=== PATIENT | female | born 1965 | race Caucasian/White ===

== ENCOUNTER 2017-10-30 15:59 | Emergency (ER) | payer BC ==
[2017-10-30 16:52] VITALS: BP 144/90
[2017-10-30] MEDS ORDERED: Ondansetron ODT TAB* 4 MG PO ONE (17:30)
[2017-10-30] MEDS ORDERED: Albuterol/Ipratropium NEB.SOL* Albuterol 2.5 MG/Ipratropium 0.5 MG 3 ML INH ONE (17:30)
--- NOTE | 2017-10-30 17:36 | UC ---
Respiratory Complaint HPI - HPI Summary HPI Summary: Pt presents with 3 days cough, nausea, 1 episode of diarrhea today. Pt with chills, wheeze. No productive cough pt with bran. mild sinus congestion. No rash + sick contacts. Pt took Aleve this am, no other meds + 1/2 ppd pt's medications reviewed this visit - History of Current Complaint Chief Complaint: UCGeneralIllness Stated Complaint: COUGH/DIZZY/NAUSEA Time Seen by Provider: 10/30/17 16:55 Hx Obtained From: Patient Onset/Duration: Gradual Onset Severity Initially: Moderate Severity Currently: Moderate Pain Intensity: 7 Pain Scale Used: 0-10 Numeric Character: Cough: Nonproductive Associated Signs And Symptoms: Positive: Wheezing, Nasal Congestion - Allergies/Home Medications Allergies/Adverse Reactions: Allergies Allergy/AdvReac Type Severity Reaction Status Date / Time tramadol Allergy Itching Verified 10/30/17 16:43 aspirin AdvReac Nausea Verified 10/30/17 16:43 codeine AdvReac Nausea Verified 10/30/17 16:43 PMH/Surg Hx/FS Hx/Imm Hx GI/ History: Gastroesophageal Reflux Psychological History: Depression - Surgical History Surgical History: Yes Surgery Procedure, Year, and Place: Surgery 1998 - Family History Known Family History: Positive: Cardiac Disease - mother , father, Hypertension - mother father, brother, Diabetes - mother, brother - Social History Occupation: Employed Full-time Lives: With Family Alcohol Use: Rare Substance Use Type: None Smoking Status (MU): Light Every Day Tobacco Smoker - 1/2ppd Type: Cigarettes Amount Used/How Often: 1/2 PPD Length of Time of Smoking/Using Tobacco: 20 YRS Have You Smoked in the Last Year: Yes Household Exposure Type: Cigarettes Review of Systems Constitutional: Chills, Fatigue ENT: Nasal Discharge, Sinus Congestion Respiratory: Cough Cardiovascular: Negative Gastrointestinal: Negative Genitourinary: Negative All Other Systems Reviewed And Are Negative: Yes Physical Exam Triage Information Reviewed: Yes Appearance: Well-Nourished, Other: Vital Signs: Initial Vital Signs Temp 98.1 F 10/30/17 16:45 Pulse 84 10/30/17 16:45 Resp 14 10/30/17 16:45 BP 144/90 10/30/17 16:45 Pulse Ox 100 10/30/17 16:45 Vital Signs Reviewed: Yes Eye Exam: Normal Eyes: Positive: Conjunctiva Clear ENT: Positive: Other - TM x 2 clear + PND turbinates inflammed rhonchi left base scattered wheeze uvula midline Dental Exam: Normal Neck exam: Normal Neck: Positive: Supple, Nontender, No Lymphadenopathy Respiratory: Positive: No respiratory distress, No accessory muscle use, Other: - coarse cough rhonci left base scattered wheeze Cardiovascular Exam: Normal Cardiovascular: Positive: RRR, No Murmur Abdominal Exam: Normal Abdomen Description: Positive: Nontender, No Organomegaly. Negative: CVA Tenderness (R), CVA Tenderness (L) Musculoskeletal Exam: Normal Musculoskeletal: Positive: Strength Intact Neurological Exam: Normal Neurological: Positive: Alert Psychological Exam: Normal Skin Exam: Normal UC Diagnostic Evaluation - Laboratory O2 Sat by Pulse Oximetry: 100 Re-Evaluation - Re-Evaluation First Eval Change: Improved - wheezing markedly improved nausea resolved will d/c with pred , zofran, albuterol return precautions hydrate secretion humidify motrin/apap work note Respiratory Course/Dx - Course Course Of Treatment: pt with cough, body aches, nausea - no vomiting, diarrhea x 1. Pt with rhonci left base, scattered wheeze. Will give zofran, neb, cxr. flu a/b neg. reassess after neb. pt's BP mildly elevated -recommend PCP f/u - Differential Dx/Diagnosis Provider Diagnoses: uri Discharge - Sign-Out/Discharge Documenting (check all that apply): Discharge - Discharge Plan Condition: Stable Disposition: HOME Prescriptions: Albuterol HFA INHALER* [Ventolin HFA Inhaler*] 1 puff INH Q4H PRN #1 mdi PRN Reason: Cough Ondansetron ODT TAB* [Zofran 4 MG Odt TAB*] 4 mg PO Q6H PRN #10 tab.odt PRN Reason: Nausea predniSONE [Prednisone] 40 mg PO DAILY #10 tablet Patient Education Materials: Upper Respiratory Infection (ED) Forms: *Gen. Provider Communication, *Work Release Referrals: CORBY Martinez [Primary Care Provider] - Additional Instructions: - Stay well hydrated. Drink plenty of non-alcoholic, non-caffinated beverages. - Alternate ibuprofen (Advil, Motrin) 600mg and Tylenol every 3 hours for pain or fever. Take with food. Do NOT take for more than 4-5 days. - These infections are spread by secretions - do NOT share eating or drinking utensils - clean items you share with other people such as cell phones, computer mouse, TV remote, computer tablets,etc. Once you start to feel better, change your toothbrush and your pillowcase. - get plenty of restful sleep - humidify the air in the room where you sleep - boil water, run a hot steam shower, vaporizer, cups of water by heat register - okay to take over the counter decongestant and cough medication - Use inhaler 2 puffs every 4 hours today and tomorrow then every 4 hours as needed - Take prednisone as prescribed - Use medication as taken for nausea - contact your doctor or return with questions or concerns - Billing Disposition and Condition Condition: STABLE Disposition: HOME
--- NOTE | 2017-10-30 17:56 | RAD ---
INDICATION: Cough, rhonchi left base. COMPARISON: There are no prior studies available for comparison. TECHNIQUE: Dual-energy PA and lateral views of the chest were obtained. FINDINGS: The heart is within normal limits in size. Mediastinal and hilar contours appear within normal limits. The lungs are clear. No pleural effusion is present. IMPRESSION: NO EVIDENCE FOR ACTIVE CARDIOPULMONARY DISEASE.
== END 2017-10-30 18:44 | disposition home or self-care (01) ==
LOC: UCCORT 15:59
DX: J06.9 Acute upper respiratory infection, unspecified (principal); R19.7 Diarrhea, unspecified; R11.0 Nausea; R03.0 Elevated blood-pressure reading, without diagnosis of hypertension; F17.210 Nicotine dependence, cigarettes, uncomplicated; Z88.5 Allergy status to narcotic agent; Z88.6 Allergy status to analgesic agent
CPT/HCPCS: 71046; 87502; 99212; A9270-GY; G0463

== ENCOUNTER 2018-03-13 08:15 | Emergency (ER) | payer BC ==
--- OUTSIDE RECORDS SUMMARY | 2018-03-13 08:31 | XMS REPORT ---
:1965 External Reference #:[id number] [facility] Address [address], [address] [place] [address] Phone [phone] Care Team Providers Name Role Phone Romel Austin PA Care Team Information Cleaner Signs Unavailable Romel Austin PA Primary Care Physician Unavailable Payers Type Date Identification Numbers Payment Provider Subscriber Commercial Policy Number: [id number] Vinnie Haley PayID: [id number] [address] [address] [place] [address] Commercial Expires: 2018 Policy Number: [id number] Florentin Haley PayID: [id number] [address] [address] [place] [address] Problems Date Description Provider Status Onset: 02/01/2018 Contusion of foot JUAN J Astudillo Active Onset: 02/01/2018 Closed fracture of phalanx of foot JUAN J Astudillo Active Family History Date Family Member(s) Problem(s) Comments Father Hypertension Father Stroke Mother Non Insulin Dependent Diabetes Mother Hypertension Mother Heart Attack Siblings 1 Social History Type Date Description Comments Marital Status Lives With Significant Other Home Environment Lives With Fiance Occupation 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 Cigarette Use Heavy tobacco smoker (more than 10 cigarettes/day) ETOH Use Currently consumes alcohol socially Smoking Heavy tobacco smoker (more than 10 cigarettes/day) Recreational Drug Use Never Used Drugs Daily Caffeine Patient consumes minimal amounts of caffeine Allergies, Adverse Reactions, Alerts Date Description Reaction Status Severity Comments 08/28/2015 Tramadol active Medications Medication Date Status Form Strength Qnty SIG Indications Ordering Provider Pantoprazole 10/20 Active Tablets 40mg 30tab 1 by mouth K22.[address] mccullough every day MD Castillo Proair HFA Active Aerosol 108(90Bas 1-2 Unknown /0000 e) inhalations mcg/Act every 4 hours as needed Mirapex 00 Active Tablets 0.25mg take 1/2 Unknown /0000 tablet by mouth at bedtime Cyclobenzaprine Active Tablets 10mg 1 by mouth Unknown HCL /0000 at bedtime Trazodone HCL Active Tablets 50mg take 1 each Unknown /0000 night as needed for sleep Citalopram Active Tablets 10mg 1 by mouth Unknown Hydrobromide /0000 every day Celebrex Hx Capsules 200mg 1 by mouth Unknown /0000 every day - 09/20 Doxycycline Hx Tablets 50mg 1 by mouth Unknown Hyclate / DR every day - 02/19 Gaviscon Hx Chewtabs 80-14.2mg 2 by mouth Unknown /0000 as needed - 02/19 Vital Signs Date Vital Result Comment 02/19/2018 BP Systolic 161 mmHg BP Diastolic 97 mmHg Body Temperature 98.0 F Heart Rate 89 /min Respiratory Rate 16 /min Height 68 inches 5'8" Weight 197.00 lb BMI (Body Mass Index) 30.0 kg/m2 BSA (Body Surface Area) 2.03 m2 [place] body weight in kilograms 63 O2 % BldC Oximetry 99 % room air Pain Level 0 02/12/2018 Height 69 inches 5'9" Weight 199.38 lb BMI (Body Mass Index) 29.4 kg/m2 BSA (Body Surface Area) 2.06 m2 [place] body weight in kilograms 66 02/01/2018 BP Systolic Sitting Left Arm 143 mmHg BP Diastolic Sitting Left Arm 88 mmHg Body Temperature 97.8 F Heart Rate 88 /min Respiratory Rate 18 /min Height 69 inches 5'9" Weight 200.00 lb Per patient BMI (Body Mass Index) 29.5 kg/m2 BSA (Body Surface Area) 2.07 m2 [place] body weight in kilograms 66 O2 % BldC Oximetry 97 % 10/20/2016 BP Systolic Sitting Left Arm 126 mmHg BP Diastolic Sitting Left Arm 88 mmHg Heart Rate 72 /min Respiratory Rate 16 /min Height 69 inches 5'9" Weight 194.00 lb BMI (Body Mass Index) 28.6 kg/m2 BSA (Body Surface Area) 2.04 m2 [place] body weight in kilograms 66 09/20/2016 BP Systolic 132 mmHg BP Diastolic 80 mmHg Weight 195.00 lb Results Test Date Test Result H/L Range Note Xray 02/19/2018 RMP, Toe, Fifth, Left <pending> Xray 01/29/2018 Foot Complete 4 Views <pending> CBC 08/07/2016 White Blood Count 11.8 K/uL High 3.1-10.7 1 Red Blood Count 3.99 M/uL 3.90-5.40 1 Hemoglobin 13.5 gm/dL 11.6-15.8 1 Hematocrit 40.2 % 36.0-46.1 1 Mean Cell Volume 100.8 fl High 80.9-99.0 1 Mean Corpuscular HGB 33.8 pg High 25.9-32.7 1 Mean Corpuscular HGB Conc 33.6 g/dL 30.8-34.3 1 Platelet Count 227 K/uL 155-360 1 Red Cell Distri Width %CV 12.7 % 11.7-14.4 1 Mean Platelet Volume 11.0 fL 8.9-12.4 1 Basic Metabolic Panel 08/07/2016 Glucose 158 mg/dL High 74-106 1 BUN 20 mg/dL High 7-18 1 Creatinine 0.7 mg/dL 0.6-1.3 1 Glom Filtration Rate, Estimate >60 mL/min >60 1 If >60 mL/min >60 1, 2 BUN/Creat 28.5 ratio 1 Sodium 141 mmol/L 136-145 1 Potassium 4.3 mmol/L 3.5-5.1 1 Chloride 110 mmol/L High 98-107 1 Carbon Dioxide 21 mmol/L 21-32 1 Anion Gap 10 mEq/L 8-16 1 Calcium 8.2 mg/dL Low 8.5-10.1 1 Laboratory test finding 08/07/2016 Magnesium 1.9 mg/dL 1.8-2.4 1 Laboratory test finding 08/07/2016 BUN/Creatinine Ratio 28.5 Blood Urea Nitrogen 20 High 7-18 Calcium Level 8.2 Low 8.5-10.1 Carbon Dioxide Level 21 21-32 Chloride Level 110 High 98-107 Glucose Screen 158 High 74-106 Magnesium Level 1.9 1.8-2.4 Mean Corpuscular Hemoglobin 33.8 High 25.9-32.7 Mean Corpuscular Hemoglobin Concent 33.6 30.8-34.3 Mean Corpuscular Volume 100.8 High 80.9-99.0 Potassium Level 4.3 3.5-5.1 RDW Coefficient of Variation 12.7 11.7-14.4 Sodium Level 141 136-145 CBS W/Automated Diff 08/06/2016 White Blood Count 6.6 K/uL 3.1-10.7 1 Red Blood Count 4.07 M/uL 3.90-5.40 1 Hemoglobin 14.0 gm/dL 11.6-15.8 1 Hematocrit 40.6 % 36.0-46.1 1 Mean Cell Volume 99.8 fl High 80.9-99.0 1 Mean Corpuscular HGB 34.4 pg High 25.9-32.7 1 Mean Corpuscular HGB Conc 34.5 g/dL High 30.8-34.3 1 Platelet Count 236 K/uL 155-360 1 Red Cell Distri Width SD 45.9 fl 3-47 1 Red Cell Distri Width %CV 12.7 % 11.7-14.4 1 Mean Platelet Volume 10.6 fL 8.9-12.4 1 Neut% 87.5 % High 40.4-72.8 1 Lymph % 11.8 % Low 20.0-42.0 1 Weld % 0.5 % Low 4.3-13.2 1 Eo% 0.0 % 0.0-6.6 1 Bas% 0.2 % 0.0-1.1 1 Neut# 5.74 K/uL 1.8-7.0 1 Lymph # 0.77 K/uL Low 1.0-4.0 1 Weld # 0.03 K/uL Low 0.3-0.9 1 Eos # 0.00 K/uL 0.0-0.5 1 Baso # 0.01 K/uL 0.0-0.1 1 Basic Metabolic Panel 08/06/2016 Glucose 132 mg/dL High 74-106 1 BUN 16 mg/dL 7-18 1 Creatinine 0.7 mg/dL 0.6-1.3 1 Glom Filtration Rate, Estimate >60 mL/min >60 1 If >60 mL/min >60 1, 3 BUN/Creat 22.8 ratio 1 Sodium 139 mmol/L 136-145 1 Potassium 4.3 mmol/L 3.5-5.1 1 Chloride 109 mmol/L High 98-107 1 Carbon Dioxide 20 mmol/L Low 21-32 1 Anion Gap 10 mEq/L 8-16 1 Calcium 8.5 mg/dL 8.5-10.1 1 Laboratory test finding 08/06/2016 Basophils # (Auto) 0.01 0.0-0.1 Basophils (%) (Auto) 0.2 0.0-1.1 Eosinophils # (Auto) 0.00 0.0-0.5 Eosinophils (%) (Auto) 0.0 0.0-6.6 Lymphocytes (%) (Auto) 11.8 Low 20.0-42.0 Monocytes # (Auto) 0.03 Low 0.3-0.9 Monocytes (%) (Auto) 0.5 Low 4.3-13.2 Neutrophils (%) (Auto) 87.5 High 40.4-72.8 Red Cell Distribution Width 45.9 3-47 Lymphocytes # (Auto) 08/06/2016 Lymphocytes # (Auto) 0.77 Low 1.0-4.0 Neutrophils # (Auto) 08/06/2016 Neutrophils # (Auto) 5.74 1.8-7.0 Laboratory test 08/06/2016 Troponin-I < 0.015 1, 4 finding ng/mL Aspartate Amino 08/05/2016 Aspartate Amino Transf 21 15-37 Transf (Ast/Sgot) (Ast/Sgot) Laboratory test 08/05/2016 Alanine Aminotransferase 28 12-78 finding (Alt/SGPT) Albumin 4.0 3.4-5.0 Albumin/Globulin Ratio 1.1 Alkaline Phosphatase 104 45-117 Globulin 3.8 1.9-4.3 Total Bilirubin 0.3 0.2-1.0 Total Protein 7.8 6.4-8.2 Laboratory test finding 08/05/2016 C-Reactive Protein,Quant < 2.9 mg/L < 3.0 1 Erythrocyte Sedimentation 08/05/2016 Erythrocyte Sedimentation 9 0-30 Rate Rate Urine Glucose (Ua) 08/05/2016 Urine Glucose (Ua) Negative Negative Laboratory test finding 08/05/2016 Urine Bilirubin Negative Negative Urine Ketones Negative Negative Urine Leukocyte Esterase Negative Negative Urine Nitrite Negative Negative Urine Protein Negative Negative Urine Urobilinogen 0.2 0.2-1.0 Laboratory test finding 08/05/2016 Troponin-I < 0.015 ng/mL 1, 5 Ua RFX Micro & Culture II 08/05/2016 Urine Color YELLOW Yellow 1 Urine Clarity CLEAR Clear 1 Urine Glucose - Dipstick NEGATIVE mg/dL Negative 1 Urine Bilirubin - Dipstick NEGATIVE Negative 1 Urine Ketone NEGATIVE mg/dL Negative 1 Urine Specific Protem 1.010 1.010-1.030 1 Urine Blood NEGATIVE Negative 1 Urine PH >=9.0 High 6.5-7.5 1 Urine Protein - Dipstick NEGATIVE mg/dL Negative 1 Urine Urobilinogen - Dipstick 0.2 E.U./dL 0.2-1.0 1 Urine Nitrite - Dipstick NEGATIVE Negative 1 Urine Leuk Esterase NEGATIVE Negative 1 Source: URINE, CLEAN CAT <SEE NOTE> 1, 6 Total Creatine Kinase 08/01/2016 Total Creatine Kinase 112 26-192 Miscellaneous Test 08/01/2016 Miscellaneous Test Test(s) added Comment Comment 1 CHEST PAIN 2 Note: Persistent reduction for 3 months or more in an eGFR <60 mL/min/1.73 m2 defines CKD. Patients with eGFR values >/=60 mL/min/1.73 m2 may also have CKD if evidence of persistent proteinuria is present. The original MDRD equation for estimated GFR is not valid for patients less than 18 years of age. Additional information may be found at www.kdoqi.org. 3 Note: Persistent reduction for 3 months or more in an eGFR <60 mL/min/1.73 m2 defines CKD. Patients with eGFR values >/=60 mL/min/1.73 m2 may also have CKD if evidence of persistent proteinuria is present. The original MDRD equation for estimated GFR is not valid for patients less than 18 years of age. Additional information may be found at www.kdoqi.org. 4 0.0 - 0.045 ng/mL: Normal 0.046 - 0.5 ng/mL: Suggestive 0.6 - 1.5 ng/mL: Consistent 5 0.0 - 0.045 ng/mL: Normal 0.046 - 0.5 ng/mL: Suggestive 0.6 - 1.5 ng/mL: Consistent 6 URINE, CLEAN CATCH Procedures Date CPT Code Description Status 02/19/2018 10334 Radiology, Toe(S) 2 Views Completed 02/01/2018 70347 Closed Fx toe other than great Completed 09/26/2016 30542 EGD With Biopsy Completed 08/02/2016 82781 Echocardiogram Complete Completed 11/07/2013 62579 Stress Test Interpre And Report Only Completed 11/07/2013 19582 Stress Test Physician Super Only Completed 11/07/2013 74184 Stress Test Physician Super Only Completed 11/07/2013 20027 Myocardial Imaging Tomographic Multiple Study AT Rest Completed Or Stress Encounters Type Date Location Provider CPT E/M Dx Office Visit 02/01/2018 2:00p Orthopaedic Office JUAN J Astudillo 67778 S92.515A S90.32xA Office Visit 10/20/2016 11:00[place] [address] K22.70 Office Visit 09/20/2016 9:45[place] [address] R12 Office Visit 03/15/2014 4:04p [facility] [place] [address] 786.50 [facility] 789.06 Office Visit 11/06/2013 4:36p Cardiology [place] [address] 786.50 Plan of Care No Information Available
[2018-03-13 08:46] VITALS: BP 159/94
--- NOTE | 2018-03-13 09:07 | UC ---
Abdominal Pain Female HPI - HPI Summary HPI Summary: nausea and vomiting plus diarrhea x 2 days upset stomach, can't keep anything down, hasn't vomited today, diarrhea x 2 this morning no fever, + chills, + sore throat - History of Current Complaint Chief Complaint: UCGI Stated Complaint: NAUSEA/DIAREHEA Time Seen by Provider: 03/13/18 08:56 Hx Obtained From: Patient Hx Last Menstrual Period: 2012 ?: No Onset/Duration: Gradual Onset, Lasting Days - 2, Still Present Timing: Constant Severity Initially: Moderate Severity Currently: Moderate Pain Intensity: 4 Location: Diffuse Radiates: No Character: Cramping Aggravating Factor(s): Food Alleviating Factor(s): Nothing Associated Signs and Symptoms: Positive: Nausea, Vomiting, Diarrhea. Negative: Fever, Cough, Chest Pain, Dizzy, Back Pain, Constipation, Blood in Stool, Urinary Symptoms, Decreased Appetite, Vaginal Bleeding, Vaginal Discharge Allergies/Adverse Reactions: Allergies Allergy/AdvReac Type Severity Reaction Status Date / Time tramadol Allergy Itching Verified 03/13/18 08:40 aspirin AdvReac Nausea Verified 03/13/18 08:40 codeine AdvReac Nausea Verified 03/13/18 08:40 Home Medications: Home Medications Albuterol HFA INHALER* [Ventolin HFA Inhaler*] 2 puff INH Q4H PRN 03/13/18 [ History] Citalopram TAB* [CeleXA TAB*] 10 mg PO DAILY 03/13/18 [History Confirmed ] Cyclobenzaprine TAB* [Flexeril 10 MG TAB*] 10 mg PO TID PRN 03/13/18 [History Confirmed 03/13/18] traZODone TAB* [Desyrel TAB*] 50 mg PO BEDTIME 03/13/18 [History Confirmed 03/13] PMH/Surg Hx/FS Hx/Imm Hx Respiratory History: COPD, Asthma GI/ History: Gastroesophageal Reflux - Surgical History Surgical History: Yes Surgery Procedure, Year, and Place: L5 Surgery 1998 - Family History Known Family History: Positive: Cardiac Disease - mother , father, Hypertension - mother father, brother, Diabetes - mother, brother - Social History Alcohol Use: Rare Substance Use Type: None Smoking Status (MU): Light Every Day Tobacco Smoker Type: Cigarettes Amount Used/How Often: 1/2 PPD Length of Time of Smoking/Using Tobacco: 20 YRS Have You Smoked in the Last Year: Yes Household Exposure Type: Cigarettes Review of Systems Constitutional: Negative Skin: Negative Eyes: Negative ENT: Sore Throat Respiratory: Negative Cardiovascular: Negative Gastrointestinal: Vomiting, Diarrhea, Nausea Genitourinary: Negative Is Patient Immunocompromised?: No All Other Systems Reviewed And Are Negative: Yes Physical Exam Triage Information Reviewed: Yes Appearance: No Pain Distress, Well-Nourished Vital Signs: Initial Vital Signs Temp 98.2 F 03/13/18 08:30 Pulse 86 03/13/18 08:30 Resp 20 03/13/18 08:30 BP 159/94 03/13/18 08:30 Pulse Ox 100 03/13/18 08:30 Vital Signs Reviewed: Yes Eyes: Positive: Conjunctiva Clear ENT: Positive: Normal ENT inspection, Hearing grossly normal, Pharyngeal erythema. Negative: Nasal congestion, Nasal drainage, Tonsillar swelling, Tonsillar exudate Neck: Positive: Supple, Nontender, No Lymphadenopathy Respiratory: Positive: Chest non-tender, Lungs clear, Normal breath sounds Cardiovascular: Positive: RRR, No Murmur, Pulses Normal Abdomen Description: Positive: Nontender, Soft. Negative: CVA Tenderness (R), CVA Tenderness (L), Distended, Guarding Bowel Sounds: Positive: Present Skin: Positive: rashes Abd Pain Female Course/Dx - Differential Dx/Diagnosis Provider Diagnoses: gastroenteritis Discharge - Sign-Out/Discharge Documenting (check all that apply): Patient Departure All imaging exams completed and their final reports reviewed: No Studies - Discharge Plan Condition: Stable Disposition: HOME Prescriptions: Ondansetron [Zofran Odt] 8 mg PO Q8H PRN #6 tab.rapdis PRN Reason: Nausea/Vomiting Patient Education Materials: Gastroenteritis (ED) Forms: *Work Release Referrals: Jose Luis Austin PA [Primary Care Provider] - If Needed - Billing Disposition and Condition Condition: STABLE Disposition: Home
== END 2018-03-13 09:19 | disposition home or self-care (01) ==
LOC: UCCORT 08:15
DX: K52.9 Noninfective gastroenteritis and colitis, unspecified (principal); J02.9 Acute pharyngitis, unspecified; Z88.5 Allergy status to narcotic agent; Z88.6 Allergy status to analgesic agent; J44.9 Chronic obstructive pulmonary disease, unspecified; F17.210 Nicotine dependence, cigarettes, uncomplicated
CPT/HCPCS: 99212; G0463